=== PATIENT | male | born 1930 | race Caucasian/White ===

== ENCOUNTER → 2017-04-22 | Outpatient (CLI) | payer OTHER ==
[2017-04-22 12:55] LABS: CREATININE 1.2 mg/dL (0.6-1.3)
== END ==
LOC: M.MRI 12:27 → M.LAB 13:30 → M.MRI 17:30
PROVIDERS: Family Medicine
DX: M19.011 Primary osteoarthritis, right shoulder (principal); G40.89 Other seizures; Z98.890 Other specified postprocedural states; Z87.828 Personal history of other (healed) physical injury and trauma

== ENCOUNTER → 2017-04-30 | Outpatient (CLI) | payer OTHER ==
--- NOTE | 2017-05-09 20:10 | EEG ---
[address] [address] EEG STUDY REPORT Name: ASHA OLIVEROS Room: [facility]#: [id number] Admission: 04/30/17 Attend Phys: Brionna Schneider MD Discharge: Date of : 34 Report #: [id number] THIS REPORT FOR: //name// CC: Brionna Schneider DATE OF SERVICE: 04/30/2017 This patient is being evaluated for the possibility of seizure. EEG was done by placing the electrodes by standard 10/20 system of electrode placement. Both referential and sequential montages were used for recording. Background activity in this patient's EEG is about 9-10 Hz and 30 microvolts. It is a symmetrical activity. The patient went to sleep that is associated with bilaterally symmetrical sleep spindle and vertex sharp waves. Photic stimulation is unremarkable. Throughout the record, no active epileptiform activity was noticed. IMPRESSION: This patient's EEG is within normal limits. It might be mentioned that EEG can be normal in a patient with a seizure disorder. Therefore, clinical correlation and further workup can be done as clinically indicated. Thank you very much for this referral. <ELECTRONICALLY SIGNED> By: Davon Monk MD 05/09/172009 1300 [id number] alberto Monk MD /nt
== END ==
LOC: M.CRD 12:37
DX: R56.9 Unspecified convulsions (principal); M25.511 Pain in right shoulder

== ENCOUNTER → 2018-01-29 | Outpatient (CLI) | payer OTHER ==
--- NOTE | 2018-01-29 16:39 | EXE ---
[place] [address] STRESS ECHOCARDIOGRAM Name: ASHA OLIVEROS Daphney Room: [facility]#: [id number] Admission: 01/29/18 Attend Phys: Brionna Schneider MD Discharge: Date of : 34 Date of Service: 01/29/18 1639 Report #: [id number] THIS REPORT FOR: //name// APPROVED REPORT Study performed: 01/29/2018 11:13:59 Exam: Stress Echocardiogram Indication: Dyspnea Patient Location: Out-Patient Stress Nurse: Nikki Haywood RN Supervising Physician: Km Souza MD Status: routine Ht: 5 ft 9 in HR: 88 bpm BP: 132/81 mmHg Rhythm: NSR Medical History Allergies: No known drug allergies Cardiac Risk Factors: age Previous Cardiac Procedures: PCI Procedure The patient underwent an Exercise Stress Test using the Alessandro Protocol. Blood pressure, heart rate, and EKG were monitored. An Echocardiogram was performed by optical technician in four stages in quad fashion. At peak stress, four selected images were obtained and placed side by side with resting images for comparison. Stress Test Details Stress Test: Exercise stress testing was performed using a Alessandro protocol. HR Resting HR: 88 bpm Max Heart Rate (APMHR): 135 bpm Max HR Achieved: 138 bpm Target HR (85% APMHR): 114 bpm % of APMHR: 102 Recovery HR: 95 bpm HR response to stress: Normal HR response to stress BP Resting BP: 132/81 mmHg Max BP: 203/92 mmHg Recovery BP: 156/88 [place] [address] STRESS ECHOCARDIOGRAM Name: ASHA OLIVEROS Room: [facility]#: [id number] Admission: 01/29/18 Attend Phys: Brionna Schneider MD Discharge: Date of : 34 Date of Service: 01/29/18 1639 Report #: [id number] ECG Resting ECG: Sinus Rhythm Stress ECG: Sinus Tachycardia ST Change: None Arrhythmia: PACs and PVCs Recovery ECG: Sinus Rhythm Recovery ST Change: None Recovery Arrhythmia: PACs and PVCs Clinical Reason for Termination: Dyspnea, fatigue Exercise duration: 3 min 14 sec Highest Stage Achieved: Stage 1: 1.7 mph at 10% grade. Exercise capacity: 4.64 METs The patient tolerated standard Alessandro protocol exercise without cardiac symptoms. Stress ECG Conclusion The baseline EKG show sinus rhythm without acute ST or T wave abnormalities. There were occasional premature atrial and premature ventricular contractions. EKGs obtained during and post exercise showed sinus rhythm and sinus tachycardia without significant ST or T wave changes when compared baseline. The patient did have occasional premature atrial and premature ventricular contractions. No sustained arrhythmias were noted. Pre-Stress Echo The resting Echocardiogram showed normal left ventricular contractility with an estimated Ejection Fraction of about 55-60%. Post-Stress Echo The stress Echocardiogram showed normal left ventricular contractility with an estimated Ejection Fraction of about 65-70%. Clinical No clinical or ECG evidence for ischemia. Conclusion Clinical Response: Non-ischemic Exercise Capacity: Average Stress ECG Response: Non-ischemic Stress Echo Images: Non-ischemic Other Information Study Quality: [place] [address] STRESS ECHOCARDIOGRAM Name: ASHA OLIVEROS Room: [facility]#: [id number] Admission: 01/29/18 Attend Phys: Brionna Schneider MD Discharge: Date of : 34 Date of Service: 01/29/181638 Report #: [id number] Technically limited study due to frequent ectopy and breathing motion artifact post images. <ELECTRONICALLY SIGNED> By: Km Souza MD, FACC 01/29/181638 38 38 Km Souza MD, FACC /INF
== END ==
LOC: M.CRD 10:05
DX: R06.02 Shortness of breath (principal); R53.83 Other fatigue

== ENCOUNTER → 2019-03-22 | Outpatient (CLI) | payer OTHER | LOC: M.RAD 09:29 | DX: J98.11 Atelectasis (principal) ==

== ENCOUNTER → 2019-05-20 | Outpatient (CLI) | payer OTHER | LOC: M.CT 11:00 | DX: G93.89 Other specified disorders of brain (principal); J34.89 Other specified disorders of nose and nasal sinuses; J34.2 Deviated nasal septum ==

== ENCOUNTER → 2019-07-01 | Outpatient (CLI) | payer OTHER | LOC: M.RAD 10:16 | DX: R05 Cough (principal) ==

== ENCOUNTER → 2019-11-29 | Outpatient (CLI) | payer OTHER | LOC: M.RAD 10:53 | PROVIDERS: ATTEND Nurse Practitioner Family | DX: J84.10 Pulmonary fibrosis, unspecified (principal); M48.04 Spinal stenosis, thoracic region; M25.78 Osteophyte, vertebrae; M41.84 Other forms of scoliosis, thoracic region ==

== ENCOUNTER → 2020-07-17 | Outpatient (CLI) | payer OTHER | LOC: M.ULTRA 14:46 | PROVIDERS: ATTEND Family Medicine | DX: E01.0 Iodine-deficiency related diffuse (endemic) goiter (principal); G93.0 Cerebral cysts ==